=== PATIENT | male | born 1975 | race Two or more races ===

== ENCOUNTER 2019-06-07 15:56 | Inpatient (IN) | payer MEDICARE, MEDICAID ==
[~2019-06-07] VITALS: Ht 190.5 cm; Wt 74.4 kg
[2019-06-07 17:03] LABS: BASOPHILS % (AUTO) 0.6 % (0.0-2.0); EOSINOPHILS % (AUTO) 1.2 % (1.0-6.0); HEMOGLOBIN 13.4 g/dL (13.5-17.5); LYMPHOCYTES # (AUTO) 1.8 K/uL (1.0-4.8); LYMPHOCYTES % (AUTO) 29.9 % (22.0-44.0); MEAN CORPUSCULAR HEMOGLOBIN 27.4 pg (26.0-34.0); MEAN CORPUSCULAR VOLUME 86 fL (80-100); MONOCYTES # (AUTO) 0.5 K/uL (0.1-1.0); MONOCYTES % (AUTO) 8.4 % (2.0-9.0); NEUTROPHILS # (AUTO) 3.6 K/uL (1.8-7.7); NEUTROPHILS % (AUTO) 59.9 % (40.0-70.0); PLATELET COUNT (AUTO) 228 K/uL (150-450); RED CELL DISTRIBUTION WIDTH 13.1 % (11.5-14.5)
[2019-06-07 17:56] LABS: ANION GAP 8 mmol/L (8-16); ASPARTATE AMINOTRANSFERASE 21 U/L (15-37); CALCIUM, TOTAL 9.4 mg/dL (8.8-10.5); CARBON DIOXIDE 27 mmol/L (22-29); CHLORIDE 107 mmol/L (98-107); POTASSIUM 4.3 mmol/L (3.5-5.1); SODIUM SERUM 142 mmol/L (136-145)
[2019-06-07 18:19] LABS: ALANINE AMINOTRANSFERASE 30 U/L (12-78); ALBUMIN 3.6 g/dL (3.4-5.0); ALKALINE PHOSPHATASE 113 U/L (46-116); BILIRUBIN,TOTAL 0.7 mg/dL (0.1-1.0); CREATININE 1.39 mg/dL (0.60-1.30); GLOMERULAR FILTR. RATE CALC 55 mL/min (>60); GLUCOSE,RANDOM 83 mg/dL (70-110); TOTAL PROTEIN, SERUM 7.3 g/dL (6.4-8.2); UREA NITROGEN, BLOOD 14 mg/dL (7-18)
[2019-06-07 19:20] LABS: AMPHET/METH SCREEN,URINE POSITIVE (NEGATIVE); BARBITURATE SCREEN, URINE NEGATIVE (NEGATIVE); BENZODIAZEPINES SCREEN,URINE NEGATIVE (NEGATIVE); CANNABINOID SCREEN,URINE NEGATIVE (NEGATIVE); COCAINE SCREEN,URINE NEGATIVE (NEGATIVE); METHADONE SCREEN, URINE NEGATIVE (NEGATIVE); OPIATE SCREEN,URINE NEGATIVE (NEGATIVE); PHENCYCLIDINE SCREEN,URINE NEGATIVE (NEGATIVE)
[2019-06-07] MEDS ORDERED: LORazepam 2 MG TABLET PO ONE (19:30)
[2019-06-07] MEDS ORDERED: DiphenhydrAMINE HCL 50 MG/ML VIAL ONE (20:49)
[2019-06-07] MEDS ORDERED: HALOPERIDOL LACTATE 5 MG/ML VIAL ONE (20:49)
[2019-06-07] MEDS ORDERED: LORazepam 2 MG/ML VIAL ONE (20:49)
[2019-06-07] MEDS ORDERED: DiphenhydrAMINE HCL 50 MG/ML VIAL IM ONE (21:00)
[2019-06-07] MEDS ORDERED: LORazepam 2 MG/ML VIAL IM ONE (21:00)
[2019-06-07] MEDS ORDERED: HALOPERIDOL LACTATE 5 MG/ML VIAL IM ONE (21:00)
[2019-06-08] MEDS ORDERED: ZOLPIDEM TARTRATE 10 MG TABLET PO PRN (01:30)
[2019-06-08 03:07] VITALS: BP 106/78
[2019-06-08 08:13] VITALS: BP 108/67
[2019-06-08] MEDS: LORazepam 2 MG TABLET PO PRN (12:40)
[2019-06-08 16:49] VITALS: BP 103/62
[2019-06-08] MEDS ORDERED: RisperiDONE 2 MG TABLET PO SCH (21:00)
[2019-06-09] MEDS: HALOPERIDOL 5 MG TABLET PO PRN ×2 (02:52→11:02)
[2019-06-09] MEDS: LORazepam 2 MG TABLET PO PRN ×2 (02:52→11:02)
[2019-06-09 08:08] VITALS: BP 106/66
[2019-06-09] MEDS: RisperiDONE 2 MG TABLET PO SCH ×2 (10:15→20:34)
[2019-06-09] MEDS ORDERED: ONDANSETRON HCL 4 MG TABLET PO PRN (13:00)
[2019-06-09] MEDS ORDERED: PETROLATUM,WHITE 28 GM JELLY TP PRN (13:00)
[2019-06-09] MEDS ORDERED: ALBUTEROL SULFATE HFA 90 MCG/PUFF 8 GM INHALER IH PRN (13:00)
[2019-06-09] MEDS ORDERED: MAGNESIUM HYDROXIDE SUSPENSION 30 ML UDCUP PO PRN (13:00)
[2019-06-09] MEDS ORDERED: DOCUSATE SODIUM 100 MG CAPSULE PO PRN (13:00)
[2019-06-09] MEDS ORDERED: GuaiFENesin/D-METHORPHAN [SUGAR-FREE] 200-20MG/10 ML SYRUP UDCUP PO PRN (13:00)
[2019-06-09] MEDS ORDERED: LOPERAMIDE HCL 2 MG CAPSULE PO PRN (13:00)
[2019-06-09] MEDS ORDERED: NICOTINE 14 MG/24 HOUR PATCH TD PRN (13:00)
[2019-06-09] MEDS ORDERED: ACETAMINOPHEN 325 MG TABLET PO PRN (13:00)
[2019-06-09] MEDS ORDERED: CloNIDine HCL 0.1 MG TABLET PO PRN (13:00)
[2019-06-09 16:17] VITALS: BP 105/65
[2019-06-10] MEDS ORDERED: LORazepam 2 MG/ML VIAL ONE (07:31)
[2019-06-10] MEDS ORDERED: HALOPERIDOL LACTATE 5 MG/ML VIAL ONE (07:31)
[2019-06-10] MEDS ORDERED: DiphenhydrAMINE HCL 50 MG/ML VIAL ONE (07:31)
[2019-06-10] MEDS ORDERED: DiphenhydrAMINE HCL 50 MG/ML VIAL IM ONE (08:30)
[2019-06-10] MEDS ORDERED: HALOPERIDOL LACTATE 5 MG/ML VIAL IM ONE (08:30)
[2019-06-10] MEDS ORDERED: LORazepam 2 MG/ML VIAL IM ONE (08:30)
[2019-06-10] MEDS: RisperiDONE 2 MG TABLET PO SCH ×2 (08:58→21:10)
[2019-06-10] MEDS: HALOPERIDOL 5 MG TABLET PO PRN (16:01)
[2019-06-10] MEDS: LORazepam 2 MG TABLET PO PRN (16:01)
[2019-06-11 00:12] VITALS: BP 94/58
[2019-06-11 07:01] LABS: BASOPHILS % (AUTO) 0.6 % (0.0-2.0); EOSINOPHILS % (AUTO) 2.9 % (1.0-6.0); HEMATOCRIT 44.7 % (41-53); HEMOGLOBIN 14.5 g/dL (13.5-17.5); LYMPHOCYTES # (AUTO) 1.4 K/uL (1.0-4.8); LYMPHOCYTES % (AUTO) 31.1 % (22.0-44.0); MEAN CORPUSCULAR HEMOGLOBIN 27.9 pg (26.0-34.0); MEAN CORPUSCULAR HGB CONC 32.5 G/dL (31.0-37.0); MEAN CORPUSCULAR VOLUME 86 fL (80-100); MONOCYTES # (AUTO) 0.4 K/uL (0.1-1.0); MONOCYTES % (AUTO) 9.1 % (2.0-9.0); NEUTROPHILS # (AUTO) 2.5 K/uL (1.8-7.7); NEUTROPHILS % (AUTO) 56.3 % (40.0-70.0); PLATELET COUNT (AUTO) 196 K/uL (150-450); RED BLOOD CELL COUNT(AUTO) 5.22 MIL/uL (4.50-5.90); RED CELL DISTRIBUTION WIDTH 13.1 % (11.5-14.5)
[2019-06-11 07:37] LABS: ALANINE AMINOTRANSFERASE 26 U/L (12-78); ALBUMIN 3.4 g/dL (3.4-5.0); ALKALINE PHOSPHATASE 105 U/L (46-116); ANION GAP 5 mmol/L (8-16); ASPARTATE AMINOTRANSFERASE 23 U/L (15-37); BILIRUBIN,TOTAL 0.6 mg/dL (0.1-1.0); CALCIUM, TOTAL 9.2 mg/dL (8.8-10.5); CARBON DIOXIDE 32 mmol/L (22-29); CHLORIDE 105 mmol/L (98-107); CHOL/HDL RATIO 3.3 (4.2-7.3); CHOLESTEROL 142 mg/dL (131-200); FREE T4 (FREE THYROXINE) 0.82 ng/dL (0.76-1.46); GLOMERULAR FILTR. RATE CALC > 60 mL/min (>60); GLUCOSE,RANDOM 87 mg/dL (70-110); HDL CHOLESTEROL 43 mg/dL (40-60); LDL CHOL (CALC.) 82 mg/dL (0-130); POTASSIUM 4.7 mmol/L (3.5-5.1); SODIUM SERUM 142 mmol/L (136-145); THYROID STIMULATING HORMONE 1.33 uIU/mL (0.36-3.74); TOTAL PROTEIN, SERUM 6.7 g/dL (6.4-8.2); TRIGLYCERIDES 84 mg/dL (15-150); UREA NITROGEN, BLOOD 16 mg/dL (7-18)
[2019-06-11 07:48] LABS: HEMOGLOBIN A1C 5.6 % (4.5-6.2)
[2019-06-11] MEDS: LORazepam 2 MG TABLET PO PRN (07:57)
[2019-06-11] MEDS ORDERED: HALOPERIDOL LACTATE 5 MG/ML VIAL ONE (08:09)
[2019-06-11] MEDS ORDERED: LORazepam 2 MG/ML VIAL ONE (08:09)
[2019-06-11] MEDS ORDERED: DiphenhydrAMINE HCL 50 MG/ML VIAL ONE (08:09)
[2019-06-11] MEDS ORDERED: DiphenhydrAMINE HCL 50 MG/ML VIAL IM ONE (08:15)
[2019-06-11] MEDS ORDERED: HALOPERIDOL LACTATE 5 MG/ML VIAL IM ONE (08:15)
[2019-06-11] MEDS ORDERED: LORazepam 2 MG/ML VIAL IM ONE (08:15)
[2019-06-11] MEDS: RisperiDONE 2 MG TABLET PO SCH ×2 (08:19→20:12)
[2019-06-11 08:50] VITALS: BP 105/68
[2019-06-11 16:12] VITALS: BP 105/66
[2019-06-12 01:45] VITALS: BP 95/63
[2019-06-12] MEDS: LORazepam 2 MG TABLET PO PRN (08:02)
[2019-06-12] MEDS: RisperiDONE 2 MG TABLET PO SCH ×2 (08:02→20:10)
[2019-06-12 08:17] VITALS: BP 111/67
[2019-06-12] MEDS ORDERED: PHENYLEPHRINE/SHK LV/MIN OIL/PET 57 GM OINTMENT TP PRN (10:00)
[2019-06-12 11:15] VITALS: BP 110/72
[2019-06-12] MEDS: IBUPROFEN 400 MG TABLET PO PRN (12:11)
[2019-06-12] MEDS ORDERED: HALOPERIDOL LACTATE 5 MG/ML VIAL ONE (13:51)
[2019-06-12] MEDS ORDERED: LORazepam 2 MG/ML VIAL ONE (13:51)
[2019-06-12] MEDS ORDERED: DiphenhydrAMINE HCL 50 MG/ML VIAL ONE (13:51)
[2019-06-12] MEDS ORDERED: LORazepam 2 MG/ML VIAL IM ONE (14:00)
[2019-06-12] MEDS ORDERED: HALOPERIDOL LACTATE 5 MG/ML VIAL IM ONE (14:00)
[2019-06-12] MEDS ORDERED: DiphenhydrAMINE HCL 50 MG/ML VIAL IM ONE (14:00)
[2019-06-12 16:08] VITALS: BP 103/68
[2019-06-13 07:09] VITALS: BP 110/68
[2019-06-13 08:20] VITALS: BP 100/61
[2019-06-13] MEDS: RisperiDONE 2 MG TABLET PO SCH (08:41)
[2019-06-13] MEDS: LORazepam 2 MG TABLET PO PRN ×2 (08:54→14:46)
[2019-06-13] MEDS: DIVALPROEX SODIUM 500 MG DR TABLET PO SCH ×2 (10:20→20:59)
[2019-06-13 16:25] VITALS: BP 103/67
[2019-06-13] MEDS: RisperiDONE 3 MG TABLET PO SCH (20:48)
[2019-06-13 23:57] VITALS: BP 102/70
[2019-06-14] MEDS: MAG HYDROX/AL HYDROX/SIMETH ES 30 ML SUSPENSION UDCUP PO PRN (00:11)
[2019-06-14] MEDS: IBUPROFEN 400 MG TABLET PO PRN (00:11)
[2019-06-14 08:14] VITALS: BP 108/70
[2019-06-14] MEDS: DIVALPROEX SODIUM 500 MG DR TABLET PO SCH ×2 (09:49→20:36)
[2019-06-14] MEDS: RisperiDONE 3 MG TABLET PO SCH ×2 (09:49→20:36)
[2019-06-14] MEDS: HALOPERIDOL 5 MG TABLET PO PRN (13:11)
[2019-06-14] MEDS: LORazepam 2 MG TABLET PO PRN (13:11)
[2019-06-14 16:09] VITALS: BP 101/59
[2019-06-15 05:43] VITALS: BP 103/58
[2019-06-15] MEDS: DIVALPROEX SODIUM 500 MG DR TABLET PO SCH ×2 (08:50→20:31)
[2019-06-15 08:51] VITALS: BP 118/75
[2019-06-15] MEDS: LORazepam 2 MG TABLET PO PRN (08:51)
[2019-06-15] MEDS: RisperiDONE 3 MG TABLET PO SCH ×2 (08:51→20:31)
[2019-06-15 16:17] VITALS: BP 112/63
[2019-06-15] MEDS: MAG HYDROX/AL HYDROX/SIMETH ES 30 ML SUSPENSION UDCUP PO PRN (19:06)
[2019-06-16 05:45] VITALS: BP 100/62
[2019-06-16 08:13] VITALS: BP 105/74
[2019-06-16] MEDS: DIVALPROEX SODIUM 500 MG DR TABLET PO SCH ×2 (08:23→20:37)
[2019-06-16] MEDS: RisperiDONE 3 MG TABLET PO SCH ×2 (08:23→20:37)
[2019-06-16] MEDS: MAG HYDROX/AL HYDROX/SIMETH ES 30 ML SUSPENSION UDCUP PO PRN ×2 (12:24→22:34)
[2019-06-16] MEDS: LORazepam 2 MG TABLET PO PRN (15:58)
[2019-06-16 16:00] VITALS: BP 112/69
[2019-06-17 00:57] VITALS: BP 109/65
[2019-06-17] MEDS: DIVALPROEX SODIUM 500 MG DR TABLET PO SCH (08:16)
[2019-06-17] MEDS: RisperiDONE 3 MG TABLET PO SCH (08:16)
[2019-06-17 08:35] VITALS: BP 102/68
[2019-06-17] MEDS ORDERED: DIVA-78 PO ×2 (09:38→09:40)
[2019-06-17] MEDS ORDERED: RISP3 PO ×2 (09:38→09:40)
== END 2019-06-17 12:10 | disposition home or self-care (01) | DRG 885 ==
LOC: EMS 15:57 → B2X 06-08 00:30 → B3A 06-08 00:30 → UNDOADMIN 06-08 00:30 → B2X 06-08 04:47
DX: F25.0 Schizoaffective disorder, bipolar type (principal); E44.0 Moderate protein-calorie malnutrition; D64.9 Anemia, unspecified; F43.10 Post-traumatic stress disorder, unspecified; F15.10 Other stimulant abuse, uncomplicated; F41.9 Anxiety disorder, unspecified; R45.87 Impulsiveness; K59.00 Constipation, unspecified; K64.9 Unspecified hemorrhoids; I95.9 Hypotension, unspecified; F17.210 Nicotine dependence, cigarettes, uncomplicated; Z68.20 Body mass index [BMI] 20.0-20.9, adult; Z71.6 Tobacco abuse counseling; Z59.0 Homelessness; Z79.899 Other long term (current) drug therapy; Z71.51 Drug abuse counseling and surveillance of drug abuser
CPT/HCPCS: 83036; 84439; 84443; 99406; G0480; J1200; J1630; J2060

== ENCOUNTER 2019-11-23 09:25 | Inpatient (IN) | payer MEDICAID, MEDICARE, OTHER ==
[~2019-11-23] VITALS: Ht 172.7 cm; Wt 66.0 kg
[~2019-11-23 09:25] MED LIST: DIVA-78 PO; RISP3 PO
[2019-11-23 10:44] LABS: EOSINOPHILS % (AUTO) 2.7 % (1.0-6.0); HEMATOCRIT 44.9 % (41-53); HEMOGLOBIN 15.3 g/dL (13.5-17.5); LYMPHOCYTES # (AUTO) 1.1 K/uL (1.0-4.8); LYMPHOCYTES % (AUTO) 21.3 % (22.0-44.0); MEAN CORPUSCULAR HEMOGLOBIN 28.7 pg (26.0-34.0); MEAN CORPUSCULAR VOLUME 84 fL (80-100); MONOCYTES # (AUTO) 0.6 K/uL (0.1-1.0); MONOCYTES % (AUTO) 10.8 % (2.0-9.0); NEUTROPHILS # (AUTO) 3.4 K/uL (1.8-7.7); NEUTROPHILS % (AUTO) 64.2 % (40.0-70.0); PLATELET COUNT (AUTO) 214 K/uL (150-450); RED BLOOD CELL COUNT(AUTO) 5.33 MIL/uL (4.50-5.90); RED CELL DISTRIBUTION WIDTH 13.4 % (11.5-14.5)
[2019-11-23 10:57] LABS: ANION GAP 8 mmol/L (8-16); CALCIUM, TOTAL 9.3 mg/dL (8.8-10.5); CARBON DIOXIDE 28 mmol/L (22-29); CHLORIDE 99 mmol/L (98-107); CREATININE 0.85 mg/dL (0.60-1.30); GLOMERULAR FILTR. RATE CALC > 60 mL/min (>60); GLUCOSE,RANDOM 86 mg/dL (70-110); POTASSIUM 4.2 mmol/L (3.5-5.1); SODIUM SERUM 135 mmol/L (136-145); UREA NITROGEN, BLOOD 16 mg/dL (7-18)
[2019-11-23 11:03] LABS: ALANINE AMINOTRANSFERASE 34 U/L (12-78); ALBUMIN 4.2 g/dL (3.4-5.0); ALKALINE PHOSPHATASE 98 U/L (46-116); ASPARTATE AMINOTRANSFERASE 24 U/L (15-37); BILIRUBIN,TOTAL 1.6 mg/dL (0.1-1.0); TOTAL PROTEIN, SERUM 7.9 g/dL (6.4-8.2)
[2019-11-23] MEDS ORDERED: LOPERAMIDE HCL 2 MG CAPSULE PO PRN (12:15)
[2019-11-23] MEDS ORDERED: ACETAMINOPHEN 325 MG TABLET PO PRN (12:15)
[2019-11-23] MEDS ORDERED: MAGNESIUM HYDROXIDE SUSPENSION 30 ML UDCUP PO PRN (12:15)
[2019-11-23] MEDS ORDERED: IBUPROFEN 400 MG TABLET PO PRN (12:15)
[2019-11-23] MEDS ORDERED: ONDANSETRON HCL 4 MG TABLET PO PRN (12:15)
[2019-11-23] MEDS ORDERED: PETROLATUM,WHITE 28 GM JELLY TP PRN (12:15)
[2019-11-23] MEDS ORDERED: CloNIDine HCL 0.1 MG TABLET PO PRN (12:15)
[2019-11-23] MEDS ORDERED: ALBUTEROL SULFATE HFA 90 MCG/PUFF 8 GM INHALER IH PRN (12:15)
[2019-11-23] MEDS ORDERED: NICOTINE 14 MG/24 HOUR PATCH TD PRN (12:15)
[2019-11-23] MEDS ORDERED: MAG HYDROX/AL HYDROX/SIMETH ES 30 ML SUSPENSION UDCUP PO PRN (12:15)
[2019-11-23] MEDS ORDERED: GuaiFENesin/D-METHORPHAN [SUGAR-FREE] 200-20MG/10 ML SYRUP UDCUP PO PRN (12:15)
[2019-11-23 12:29] VITALS: BP 127/70
[2019-11-23] MEDS ORDERED: INFLUENZA VIRUS VACCINE QVS 2019-20 (3YR+)/PF 60 MCG/0.5 ML SYRINGE IM ONE (16:30)
[2019-11-23 19:43] VITALS: BP 120/75
[2019-11-24 04:50] VITALS: BP 99/73
[2019-11-24 07:44] VITALS: BP 127/54
[2019-11-24] MEDS ORDERED: HALOPERIDOL 5 MG TABLET PO PRN (15:15)
[2019-11-24] MEDS ORDERED: HydrOXYzine PAMOATE 50 MG CAPSULE PO PRN (15:15)
[2019-11-24 15:43] VITALS: BP 116/72
[2019-11-24 18:02] VITALS: BP 132/90
[2019-11-24] MEDS: OLANZapine 5 MG TABLET PO SCH (20:39)
[2019-11-24] MEDS: DIVALPROEX SODIUM 500 MG DR TABLET PO SCH (20:39)
[2019-11-24 21:44] VITALS: BP 108/67
[2019-11-25 04:50] VITALS: BP_SYST 108; BP_SYST 93; BP_DIAS 58; BP_DIAS 65
[2019-11-25 07:48] VITALS: BP 117/49
[2019-11-25] MEDS: DIVALPROEX SODIUM 500 MG DR TABLET PO SCH ×2 (08:13→21:28)
[2019-11-25] MEDS: OLANZapine 5 MG TABLET PO SCH ×2 (08:13→21:28)
[2019-11-25 16:35] VITALS: BP 90/60
[2019-11-26] MEDS: DIVALPROEX SODIUM 500 MG DR TABLET PO SCH ×2 (08:03→20:08)
[2019-11-26] MEDS: DOCUSATE SODIUM 100 MG CAPSULE PO PRN (08:03)
[2019-11-26 08:24] VITALS: BP 100/55
[2019-11-26] MEDS: OLANZapine 5 MG TABLET PO SCH ×2 (10:07→20:08)
[2019-11-26 15:47] VITALS: BP 101/56
[2019-11-26 20:17] VITALS: BP 111/61
[2019-11-27 05:41] VITALS: BP 103/62
[2019-11-27] MEDS: DOCUSATE SODIUM 100 MG CAPSULE PO PRN (08:18)
[2019-11-27] MEDS: OLANZapine 5 MG TABLET PO SCH ×2 (08:18→20:53)
[2019-11-27] MEDS: DIVALPROEX SODIUM 500 MG DR TABLET PO SCH ×2 (08:18→20:53)
[2019-11-27 15:53] VITALS: BP 107/63
[2019-11-27 20:10] VITALS: BP 103/63
[2019-11-28 05:08] VITALS: BP 101/60
[2019-11-28] MEDS: DIVALPROEX SODIUM 500 MG DR TABLET PO SCH ×2 (08:16→21:07)
[2019-11-28] MEDS: OLANZapine 5 MG TABLET PO SCH ×2 (08:16→21:07)
[2019-11-28 13:50] VITALS: BP 109/61
[2019-11-28] MEDS ORDERED: OLAN5TAB2 PO (14:36)
[2019-11-28] MEDS ORDERED: DIVA-78 PO (14:38)
[2019-11-28 15:53] VITALS: BP 118/68
[2019-11-28 20:12] VITALS: BP 115/58
[2019-11-29 04:00] VITALS: BP 116/66
== END 2019-11-29 06:20 | DRG 885 ==
LOC: EMS 09:27 → 6S 11:32
PROVIDERS: ADMIT Internal Medicine; ATTEND Internal Medicine
DX: F25.0 Schizoaffective disorder, bipolar type (principal); R45.851 Suicidal ideations; F17.200 Nicotine dependence, unspecified, uncomplicated; F19.10 Other psychoactive substance abuse, uncomplicated; F41.9 Anxiety disorder, unspecified; Z59.0 Homelessness; Z91.5 Personal history of self-harm
CPT/HCPCS: 84443; G0480